=== PATIENT | female | born 1945 | race Caucasian/White ===

== ENCOUNTER 2023-12-15 03:20 | Observation (INO) | payer OTHER, SELFPAY ==
[2023-12-14 23:34] VITALS: BP 119/64
[2023-12-14 23:42] VITALS: BMI 28.0
[2023-12-14 23:46] LABS: Glucose - Point of Care 142 mg/dl (70-99)
[2023-12-14 23:59] LABS: % Basophils 0.3 % (0-2); % Eosinophils 0.4 % (0-6); % Immature Granulocytes 0.5 % (0-0.5); % Lymphocytes 14.8 % (20.5-51.1); % Monocytes 6.3 % (1.7-9.3); % Neutrophils 77.7 % (42.2-75.2); Absolute Eosinophils 0.1 10^3/uL (0-0.7); Absolute Immature Granulocytes 0.1 10^3/uL (0-0.05); Absolute Monocytes 0.8 10^3/uL (0.1-0.6); Absolute Neutrophils 10.3 10^3/uL (1.4-6.5); Hematocrit 34.1 % (37.0-47.0); Hemoglobin 11.5 g/dL (12.0-16.0); Mean Corp Hgb Conc. 33.7 g/dL (33.0-37.0); Mean Platelet Volume 9.1 fL (7.4-10.4); Nucleated Red Blood Cells % 0 %; Platelet Count 293 10^3/uL (130-400); Red Blood Cell Count 4.11 10^6/uL (4.20-5.40); Red Cell Dist. Width 15.7 % (11.5-14.5); White Blood Cell Count 13.3 10^3/uL (4.8-10.8)
[2023-12-15] VITALS (32 sets, daily range): BP systolic 98–128; BP diastolic 52–79; PULSE 62–87; BMI 27.5
[2023-12-15 00:11] LABS: ALT (SGPT) 22 U/L (0-35); AST (SGOT) 29 U/L (14-36); Albumin 4.1 g/dl (3.5-5.0); Alkaline Phosphatase 82 U/L (38-126); Blood Urea Nitrogen 24 mg/dl (7-17); Calcium 9.4 mg/dl (8.4-10.2); Carbon Dioxide 22 mmol/L (22-30); Chloride 105 mmol/L (98-107); Estimated Creatinine Clearance 83 ml/min; Glucose 152 mg/dl (70-99); Lipase 58 U/L (23-300); Potassium 4.2 mmol/L (3.5-5.1); Sodium 135 mmol/L (135-145); Total Bilirubin 0.4 mg/dl (0.2-1.3); Total Protein 6.5 g/dl (6.3-8.2); eGFR > 60.00
[2023-12-15 00:22] LABS: Troponin I < 0.012 ng/ml
--- NOTE | 2023-12-15 00:40 | ED.GENMED ---
History of Present Illness
General
Chief Complaint: Fainting/Passed Out
Source: patient and spouse
Exam Limitations: none
Time Seen by Provider: 12/15/23 00:15
Nursing documentation reviewed up to this point in time: agreed with
Travel History
Have you had any contact with someone who has COVID-19?: No
Do you have any symptoms of coronavirus? Fever > 100 degrees, chills, cough, shortness of breath, sore throat, loss of taste or smell, muscle aches, or headache?: No
History of Present Illness
History of Present Illness:
Patient with history of atrial fibrillation on Eliquis and recent COVID infection 3 weeks ago after cruise trip, presents to ED secondary to syncopal episode at home, shortly prior to arrival. Patient was at her baseline health this morning and
this evening. Patient had just returned from casino and dinner outing. She fell asleep on her reclining chair. Patient was woken up by her , to go to sleep. When she stood up and was walking to restroom to urinate, patient reports 'not
feeling well'. Patient started to feel lightheaded, different from her vertigo episodes in the past, and sweaty. Patient was able to go to restroom, and was sitting on toilet, when her heard noise, as if something had been knocked down.
When he entered the restroom, patient was still sitting on the toilet with her head down. Patient woke up spontaneously, and there was no confusion noted. Patient reports having had similar episode 2 weeks ago which resolved spontaneously.
Patient denies chest palpitations or shortness of breath. Denies headache. Denies loss of sensation or weakness. Denies back pain. Denies leg pain or swelling. Denies history of heart disease or CVA. Denies drinking alcohol.
Past History
Past History
ED Past Medical History: HTN, Hypercholesterolemia and NIDDM; Negative Asthma
ED Past Surgical History: None
Social History
Tobacco: Former smoker
Alcohol: Occasional
Personal:
Living: with family
Review of Systems
Review of Systems
Allergies reviewed?: Yes
All Other Systems: ROS reviewed and negative except as documented in HPI and ROS
Constitutional: Reports no symptoms
EENT: Reports no symptoms
Respiratory: Reports no symptoms
Cardiac: Reports diaphoresis and syncope
ABD/GI: Reports no symptoms
: Reports no symptoms
Musculoskeletal: Reports no symptoms
Skin: Reports no symptoms
Neurological: Reports dizzy
Phy Exam
Physical Exam
Physical Exam:
Physical Exam
General: no apparent distress, not acutely ill
Head: nc/at. eomi
Neck: supple. no meningeal signs.
Heart: s1/s2 regular rate and rhythm, systolic ejection murmur. equal radial pulses.
Lungs: no acute respiratory distress. clear bilaterally
Abdomen: normal bowel sounds. not tender.
Neuro: alert and oriented. no focal neurological deficits. left facial droop, chronic.
Skin: no rash
Psychiatric: well kept. interactive and cooperative
Extremities: no edema. no calf tenderness.
Course
Orders/Labs/Results
Orders:
Orders
12/14/23 23:33
EKG [Electrocardiogram (*1)] Urgent
Reason for Study: Syncope
EKG- Treatment ONCE
12/14/23 23:48
CBC/With Diff [Complete Blood Count/With Diff] Urgent
CMP [Comprehensive Metabolic Panel] Urgent
Lipase Urgent
12/14/23 23:50
Troponin I Urgent
12/15/23 00:40
Orthostatic VS- Treatment ONCE
12/15/23 00:45
CT Head W/o Iv Contrast Urgent
Comment:
Reason For Exam: dizziness with syncope
12/15/23 03:06
Admit/Transfer Patient As Directed
Co-Sign Provider:
Level of Care: Observation services
Assign to:: Telemetry
Physician / Group: [facility]
Diagnosis: Syncope
Reason for Telemetry: Syncope
Date to Stop Telemetry: 12/17/23
Time to Stop Telemetry: 11:00
12/15/23 03:08
Code Status As Directed
Resuscitation Status: Full Code
12/15/23 03:48
0.9% Sodium Chloride 1000 ml [Nss] 1,000 ml IV 100 mls/hr
Acetaminophen [Tylenol] 650 mg PO Q4HPRN PRN
Dextrose 50%-Water [Dextrose 50% Syringe] 12.5 grams IV [id number] PRN
Glucagon [GlucaGen] 1 mg IM PRN PRN
Ondansetron Injectable [Zofran] 4 mg IV Q6HPRN PRN
12/15/23 03:48
Activity As Directed
Activity Level: Ambulate
With Assistance
Bedside Glucose Monitoring As Directed
Frequency: AC&HS
Comment: Change to q6h if pt on TPN, tube feeding or not eating
Bladder Scan As Directed
Follow Bladder Retention/Intermittent Cath Algorithm?: Yes
PRN if no void in __ hours: 6
Frequency: Per Retention Algorithm
If Bladder Scan Result >: 400
then:: Straight cath
EKG with chest pain [ECG as needed] As Directed
ECG as needed for:: Chest Pain
I/O [Intake/ Output] As Directed
Frequency: Per unit guidelines
Orthostatic Vital Signs As Directed
Orthostatic VS Frequency: BID
Pneumatic Compression Sleeves As Directed
Type: Knee high
Straight Cath As Directed
Frequency: Per Retention Algorithm
Additional Instructions: straight cath as needed per acute urinary retention algorithm for 24 hrs
Additional Instructions: for bladder scan greater than 400 mL
Vital Signs As Directed
Frequency: Per unit guidelines
Weight As Directed
Frequency: Daily
Oxygen Therapy [O2 Therapy] [RESP] Routine
Titrate/Wean O2 to maintain O2 sat greater than (%): 94
Ot Eval And Treat Routine
PT Consult [Pt Eval And Treat] Routine
Activity Level: Ambulate
With Assistance
DX Deep Vein Thrombosis Video Routine
12/15/23 05:09
Basic Metabolic Panel IN AM
Complete Blood Count/No Diff IN AM
Glycohemoglobin (HgbA1c) IN AM
TSH Reflex To Free T4 Routine
12/15/23 Breakfast
2000 calorie (17 carb) Diabetic
At Your Request: Full Participation
Does patient need a safe tray?: No
12/15/23 07:00
Levothyroxine [Synthroid] 112 mcg PO DAILY@0700
12/15/23 07:30
Insulin Aspart Corrective Low [Novolog Flexpen-Low Resistance] See Protocol SC AC
12/15/23 08:00
Apixaban [Eliquis] 5 mg PO BID
Atorvastatin [Lipitor] 40 mg PO DAILY
Autologus Serum Eye Drops 1 drop DROP QID
Diltiazem Extended Release [Cardizem Cd] 180 mg PO DAILY
Glipizide Extended Release [Glucotrol Xl (Extended Release)] 10 mg PO BID
Lisinopril [Zestril] 10 mg PO DAILY
Metformin Extended Release [Glucophage Xr Extended Release] 500 mg PO QID
Pancrelipase [Zenpep Delayed Release Capsule] 1 capsule PO QID
12/17/23 11:00
DC Protocol for Telemetry ONCE
Abnormal Lab Results
12/14/23 12/14/23
23:45 23:48
WBC 13.3 H 10^3/uL
(4.8-10.8)
RBC 4.11 L 10^6/uL
(4.20-5.40)
Hgb 11.5 L g/dL
(12.0-16.0)
Hct 34.1 L %
(37.0-47.0)
RDW 15.7 H %
(11.5-14.5)
Abs Immat Gran (auto) 0.1 H 10^3/uL
(0-0.05)
Absolute Neuts (auto) 10.3 H 10^3/uL
(1.4-6.5)
Absolute Monos (auto) 0.8 H 10^3/uL
(0.1-0.6)
Neutrophils % 77.7 H %
(42.2-75.2)
Lymphocytes % 14.8 L %
(20.5-51.1)
BUN 24 H mg/dl
(7-17)
Glucose 152 H mg/dl
(70-99)
POC Glucose 142 H mg/dl
(70-99)
12/14/23 23:48
12/14/23 23:48
Vital Signs
Initial and Last Documented VS:
Initial Vital Signs
Temp Pulse Resp BP Pulse Ox
97.8 F 67 16 119/64 96
12/14/23 23:34 12/14/23 23:34 12/14/23 23:34 12/14/23 23:34 12/14/23 23:34
Last Documented Vital Signs
Temp Pulse Resp BP Pulse Ox
98.3 F 60 18 115/67 95
12/15/23 07:48 12/15/23 08:25 12/15/23 07:48 12/15/23 08:25 12/15/23 07:48
MDM/Problems Addressed
MDM/Problems Addressed:
Patient with recurrent syncopal episodes over the past 2 weeks. Unclear etiology at this time, but does appear to be positional along with component of vagal response. In addition, the patient reports dizziness when changing position, but history
does not correlate with any degree of dehydration. Cardiogenic versus neurogenic syncope, and will need further evaluation
*EKG
Interpreted by ED Provider?: Yes
EKG Intrepretation Date: 12/15/23
Heart Rate: 61
Rate: normal
Rhythm: sinus
[place]: normal axis
Interval: normal interval
*Critical Care Note
Total Time (30-74mins, 75-104mins- exclusive of procedures): Not Applicable
ED Attending Note
-
Portions of this chart may have been created with voice recognition software.� Occasional wrong word or��sound alike� substitutions may have occurred due to the inherent limitations of voice recognition software.
Discharge Plan
Departure
Patient Disposition: Admit
Date of Disposition: 12/15/23
Time of Disposition: 02:17
Admit to: Telemetry
Presentation/result/management discussed w/ accepting MD/DO: Hospitalist
Condition: Fair
Discharge Problem:
Syncope
Interventions
Interventions:
*Risk Screen - Suicide Last Done: 12/14/23 23:34
*General Assessment Last Done: 12/14/23 23:34
*Neglect/Abuse Screening Last Done: 12/14/23 23:34
ED- Fall Risk Assessment Last Done: 12/14/23 23:57
*ED COVID-19 Vaccine History Last Done: 12/14/23 23:42
*Nursing Disposition Last Done: 12/15/23 04:20
ED- Cardiac Assessment Last Done: 12/14/23 23:57
ED- Neurological Assessment Last Done: 12/14/23 23:57
--- NOTE | 2023-12-15 03:10 | HPS.HSE ---
Family Physician
-
Family Physician: Carlos Mcarthur
Chief Complaint
-
Syncope
History of Present Illness
Patient is a 78y F with PMH significant for HTN, DM-II and pancreatic insufficiency s/p Whipple who presents to ED complaining of syncopal episode. History obtained from patient and her at the beside. Patient states that she fell asleep
this evening in her recliner around 8:30 PM - which is typical for her. Her woke her around 10:30 PM to go to bed - which is also typical. Patient states that she was walking to the bedroom when she began to feel lightheaded, sweaty and
nauseated. She went into the bathroom and sat on the toilet. Her brought her a cup of water. Patient then briefly lost consciousness and dropped the cup. She did not fall from the toilet and suffered no injury. lifted her head
and she began to come around. She had N/V x 1 episode after regaining consciousness.
Patient states that she had been feeling well earlier in the evening and denies any recent illness / symptoms.
Patient reports that she had a similar episode about 2 weeks ago. It was identical in terms of being woken from sleep to ambulate to bed and briefly losing consciousness. She did not have N/V on that occasion and she did not seek medical attention
at that time.
Patient reports that she was started on Jardiance at the end of October - about one week prior to her initial episode of syncope.
She also notes that she had COVID about 3 weeks ago - now fully recovered.
Medical History
Past Medical History
Past Medical History: Reports Other
Additional Past Medical History:
Pancreatic Lesion
Exocrine Pancreatic Insufficiency
Hypertension
Paroxysmal Atrial Fibrillation
Brain Tumor
Hypothyroidism
DM-II
Hypertension
Past Surgical History: Reports Other
Additional Past Surgical History:
Craniotomy / Tumor Excision - R Occipital
Implanted Hearing Aid - R Mastoid
Whipple
Incisional Herniorrhaphy
Carpal Tunnel
Cataracts
Left Hand Surgery
Facial Reconstruction Surgeries
Social History
Tobacco: Former Smoker
Alcohol: Occasional
Drug: None
Personal:
Living: With Family
Family History
Family History: Not pertinent
Allergies / Home Medications
Allergies reflects when Allergies were last updated in [facility].
Home Medications with original date entered in [facility]
Allergy/Medication List:
Allergies
Allergy/AdvReac Type Severity Reaction Status Date / Time
Sulfa (Sulfonamide Allergy LOC Verified 12/14/23 23:33
Antibiotics)
[Sulfa(Sulfonamide
Antibiotics)]
Home Medications
atorvastatin 40 mg tablet 40 mg PO DAILY High cholesterol 07/13/21
erythromycin 5 mg/gram (0.5 %) eye ointment 1 applic RIGHT EYE HS Eye condition 07/13/21
glipizide 2.5 mg tablet, extended release 24 hr 10 mg PO BID Diabetes 07/13/21
levothyroxine 88 mcg tablet 112 mcg PO DAILY Thyroid 07/13/21
metformin 500 mg tablet,extended release 24 hr 500 mg PO QID Diabetes 07/13/21
quinapril 10 mg tablet (Accupril) 10 mg PO DAILY Blood pressure 07/13/21
apixaban 5 mg tablet (Eliquis) 5 mg PO BID #60 tabs 07/20/21
Autologus Serum Eye Drops 1 DROP QID 08/30/21
Tumeric 500 mg PO DAILY 08/30/21
Zinc, Magnesium, Calcium mg PO DAILY 08/30/21
calcium carbonate 600 mg calcium (1,500 mg) tablet 600 mg PO DAILY 08/30/21
cholecalciferol (vitamin D3) 25 mcg (1,000 unit) capsule (Vitamin D3) 25 mcg PO DAILY 08/30/21
diltiazem HCl 240 mg capsule,extended release 24 hr 180 mg PO DAILY 12/15/23
empagliflozin 10 mg tablet (Jardiance) 10 mg PO DAILY 12/15/23
[id number]-mdxvndnu-ctletbe 24,000-76,000-120,000 unit capsule,delayed rel (Creon) 1 cap PO QID 12/15/23
Review of Systems
-
History Source: Patient
A 12 point ROS was completed and negative except as noted: Yes
Constitutional: Reports Fatigue; Denies Fever or Chills
EENT: Denies Sore Throat
Respiratory: Denies Cough or Trouble Breathing
Cardiac: Reports Diaphoresis and Syncope; Denies Chest Pain or Palpitations
Abdomen/GI: Reports Nausea and Vomiting; Denies Abdominal Pain or Diarrhea
: Denies Dysuria, Frequency or Flank Pain
Musculoskeletal: Denies Joint Pain or Edema
Neurological: Reports Dizzy; Denies Headache
Psych: Denies Depression or Anxiety
Physical Exam
Vital Signs
Vital Signs
Temp Pulse Resp BP Pulse Ox
97.8 F 76 16 125/63 93
12/14/23 23:34 12/15/23 02:30 12/15/23 02:30 12/15/23 02:10 12/15/23 02:30
Physical Exam
General: Other (78y F in no acute distress.)
HEENT: Moist mucous membranes
Respiratory: Clear; No Wheezes, Rales or Rhonchi
Cardiac: S1/S2 and Regular Rhythm; No Murmur
GI: Soft, Non Tender, Non Distended and Normal Bowel Sounds
Musculoskeletal: No Clubbing, No Cyanosis and No Edema
Neuro: AO x 3 and Other (R facial paralysis / droop - chronic and unchanged.)
Laboratory Results
-
12/14/23 23:48
12/14/23 23:48
Laboratory Results
Total Bilirubin 0.4 mg/dl (0.2-1.3) 12/14/23 23:48
AST 29 U/L (14-36) 12/14/23 23:48
ALT 22 U/L (0-35) 12/14/23 23:48
Alkaline Phosphatase 82 U/L (38-126) 12/14/23 23:48
Troponin I < 0.012 ng/ml 12/14/23 23:50
Lipase 58 U/L (23-300) 12/14/23 23:48
Impression/Plan
-
A/P: Patient is a 78y F with PMH significant for brain tumor s/p excision, pancreatic lesion s/p Whipple, DM-II and pancreatic insufficiency who presents to ED s/p syncopal episode.
Syncope
- Observe overnight for further evaluation and treatment.
- Seems likely orthostatic / vasovagal episode based on description.
- Suspect combination of being woken from sleep and recent introduction of diuretic therapy as contributing factors.
- Monitor on tele overnight to rule out arrhythmia.
- Follow orthostatic signs.
- IVFs overnight.
- PT / OT evaluations in the AM.
- Would consider altering usual habit of falling asleep and then being woken 'in the middle of the night' to ambulate to the bedroom.
DM-II
- Stable. On multidrug regimen and most recent change was from Januvia to Jardiance.
- Suspect diuretic effect contributed to current presentation given 2 episodes since this med was initiated.
- Will hold SGLT2 for now.
- Patient will follow-up with Endocrine as an outpatient.
- Could repeat trial with increased fluid intake (though patient states that she has been drinking lots of fluids).
- Continue other DM medications plus SSI as needed.
- Update A1C.
Benign Hypertension
- Stable. Continue BP medications with holding parameters.
Paroxysmal Atrial Fibrillation
- Single episode of A-Fib in the past. Currently in NSR.
- Monitor on tele as noted above.
- Continue Eliquis for stroke risk reduction.
Pancreatic Insufficiency
- Stable. Continue Creon with meals.
Hypothyroidism
- Continue current T4 replacement.
- Update TFTs.
History of Brain Tumor
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
- No new findings.
DVT Prophylaxis: On Eliquis
Code Status: Full
[2023-12-15] MEDS: NSS 1000 IV (05:18)
[2023-12-15 05:29] LABS: Hematocrit 31.9 % (37.0-47.0); Hemoglobin 10.9 g/dL (12.0-16.0); Mean Corp Hgb Conc. 34.2 g/dL (33.0-37.0); Mean Corpuscular Hgb 28.5 pg (27.0-31.0); Mean Corpuscular Volume 83.5 fL (81.0-99.0); Mean Platelet Volume 9.4 fL (7.4-10.4); Platelet Count 291 10^3/uL (130-400); Red Blood Cell Count 3.82 10^6/uL (4.20-5.40); Red Cell Dist. Width 15.7 % (11.5-14.5); White Blood Cell Count 9.4 10^3/uL (4.8-10.8)
[2023-12-15 05:50] LABS: Blood Urea Nitrogen 22 mg/dl (7-17); Calcium 8.9 mg/dl (8.4-10.2); Carbon Dioxide 23 mmol/L (22-30); Chloride 104 mmol/L (98-107); Estimated Creatinine Clearance 83 ml/min; Glucose 273 mg/dl (70-99); Potassium 4.6 mmol/L (3.5-5.1); Sodium 133 mmol/L (135-145); eGFR > 60.00
[2023-12-15 06:20] LABS: TSH Reflex To Free T4 1.23 uIU/ml (0.47-4.68)
[2023-12-15] MEDS: ZENPEP DELAYED RELEASE CAPSULE 1 CAPSULE PO ×4 (08:04→21:31)
[2023-12-15] MEDS: GLUCOPHAGE XR EXTENDED RELEASE 500 MG PO (08:04)
[2023-12-15] MEDS: SYNTHROID 112 MCG PO (08:14)
[2023-12-15] MEDS: ZESTRIL 10 MG PO (08:14)
[2023-12-15] MEDS: GLUCOTROL XL (EXTENDED RELEASE) 10 MG PO ×2 (08:14→22:16)
[2023-12-15] MEDS: ELIQUIS 5 MG PO ×2 (08:14→21:31)
[2023-12-15] MEDS: LIPITOR 40 MG PO (08:15)
[2023-12-15 08:20] LABS: Glucose - Point of Care 200 mg/dl (70-99)
[2023-12-15 08:24] LABS: Glycohemoglobin (HgbA1c) 8.6 % (4.0-5.6)
[2023-12-15] MEDS: CARDIZEM CD 180 MG PO (08:25)
[2023-12-15] MEDS: NOVOLOG FLEXPEN-LOW RESISTANCE 2 UNITS SC (09:25)
[2023-12-15 13:19] LABS: Glucose - Point of Care 97 mg/dl (70-99)
[2023-12-15] MEDS: NOVOLOG FLEXPEN-LOW RESISTANCE SC ×2 (13:25→17:29)
--- NOTE | 2023-12-15 16:34 | W.PN.HOSP.TC ---
Today's Communication/Plan
-
ambulate over next 24 hrs with potential dc if remains asymptomatic, off Jardiance and obtain OLIVIER's to wear when OOB
Assessment / Plan
Assessment / Plan
Syncope
�- Observe for 1 more day for further evaluation and treatment.
�- Seems likely orthostatic / vasovagal episode based on description.
� listed side effect to Jardiance. Would not resume
�- Monitor on tele overnight to rule out arrhythmia.
�- Follow orthostatic signs.
�- stop IVFs
�- PT / OT evaluations appreciated
�- Discussed use of OLIVIER's and avoidance of falling asleep on the recliner and then getting up to go to the bathroom prior to going to bed. Started on Jardiance 3 wks ago, initial episode was 2 wks ago and then last night
DM-II
�- Stable.� On multidrug regimen and most recent change was from Januvia to Jardiance.
�- Suspect diuretic effect contributed to current presentation given 2 episodes since this med was initiated.
�- Will hold SGLT2 for now.
�- Patient will follow-up with Endocrine as an outpatient.
�- Could repeat trial with increased fluid intake (though patient states that she has been drinking lots of fluids).
�- Continue other DM medications plus SSI as needed.
�- 8.6% A1C.
Benign Hypertension
�- Stable.� Continue BP medications with holding parameters.
Paroxysmal Atrial Fibrillation
�- Single episode of A-Fib in the past.� Currently in NSR.
�- Monitor on tele as noted above.
�- Continue Eliquis for stroke risk reduction. Continue Diltiazem for rhythm control
Pancreatic Insufficiency
�- Stable.� Continue Creon with meals.
Hypothyroidism
�- Continue current T4 replacement.
�- TSH 1.23
History of Brain Tumor
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
�- No new findings.
DVT Prophylaxis:� On Eliquis
Code Status:� Full
Anticipated Discharge: Within 24 hours
Subjective/Interval History
-
Date of Service: December 15, 2023
No further dizziness, but has not been out of bed much
Objective Data
-
Labs:
Laboratory Results
12/15/23
05:09
WBC 9.4
Hgb 10.9 L
Hct 31.9 L
Plt Count 291
Sodium 133 L
Potassium 4.6
Chloride 104
Carbon Dioxide 23
BUN 22 H
Creatinine 0.5 L
Glucose 273 H
Calcium 8.9
Vital Signs:
Vital Signs
Temp Pulse Resp BP Pulse Ox
98.3 F 64 15 104/61 95
12/15/23 07:48 12/15/23 16:00 12/15/23 16:00 12/15/23 16:00 12/15/23 09:15
Review of Systems
-
History Source: Patient and Coordinated Provider
Constitutional: Denies Fever
EENT: Reports No Symptoms Reported
Respiratory: Reports No Symptoms
Cardiac: Reports No Symptoms
Abdomen/GI: Reports No Symptoms
Physical Exam
-
General: Well Developed, Well Nourished and No Apparent Distress
HEENT: Normocephalic, Atraumatic and Moist Mucous Membranes
Respiratory: Clear to Auscultation; Negative Wheezes, Rales or Rhonchi
Cardiac: Regular Rhythm and S1/S2
GI: Soft and Nontender
Musculoskeletal: No Cyanosis and No Edema
Neuro: Awake, Alert, Oriented and Facial Droop (rt sided - chronic)
[2023-12-15] MEDS: NSS IV (16:47)
[2023-12-15 17:20] LABS: Glucose - Point of Care 148 mg/dl (70-99)
[2023-12-15] MEDS: GLUCOPHAGE XR EXTENDED RELEASE 1000 MG PO (17:29)
[2023-12-15 21:20] LABS: Glucose - Point of Care 142 mg/dl (70-99)
[2023-12-15] MEDS: ERYTHROMYCIN 0.5% OPHTHALMIC OINTMENT 1 APPLIC RIGHT EYE (21:31)
[2023-12-15] MEDS: GLUCOTROL XL (EXTENDED RELEASE) PO (21:37)
--- NOTE | 2023-12-16 01:39 | PTCARENOTE ---
Pt did well ambulating from bed to bathroom. No reports of dizziness, SOB, etc.
[2023-12-16 03:00] VITALS: BP 104/49
[2023-12-16 06:00] VITALS: BMI 27.1
[2023-12-16] MEDS: SYNTHROID 112 MCG PO (06:17)
[2023-12-16 07:27] LABS: Glucose - Point of Care 130 mg/dl (70-99)
[2023-12-16 07:55] VITALS: BP 110/63; BP 111/64; BP 112/62; PULSE 63; PULSE 64; PULSE 74
[2023-12-16] MEDS: NOVOLOG FLEXPEN-LOW RESISTANCE SC (08:39)
[2023-12-16] MEDS: ZENPEP DELAYED RELEASE CAPSULE 1 CAPSULE PO ×2 (08:45→11:46)
[2023-12-16] MEDS: ELIQUIS 5 MG PO (08:45)
[2023-12-16] MEDS: GLUCOTROL XL (EXTENDED RELEASE) 10 MG PO (08:45)
[2023-12-16] MEDS: LIPITOR 40 MG PO (08:45)
[2023-12-16] MEDS: CARDIZEM CD 180 MG PO (08:45)
[2023-12-16] MEDS: GLUCOPHAGE XR EXTENDED RELEASE 1000 MG PO (08:45)
[2023-12-16] MEDS: ZESTRIL 10 MG PO (08:45)
--- NOTE | 2023-12-16 11:13 | W.PN.HOSP.TC ---
Today's Communication/Plan
-
dc to home
Assessment / Plan
Assessment / Plan
Assessment:
Syncope
- suspect vagal vs orthostasis in setting of Jardiance (listed in side effect profile)
- timeline of symptoms mirrors initiation of Jardiance 3 weeks ago
- orthostatics normal this AM
- TEDS for home
- no events on tele
- PT/OT - ok for home
Type 2 DM
- recent change from Januvia to Jardiance
- now off Jardiance
- continue MFM/Glipizide
- follow up with Endo (Dr. Olmos)
- 8.6% A1C.
Benign Hypertension
- Stable.� Continue BP medications with holding parameters.
Paroxysmal Atrial Fibrillation
- Single episode of A-Fib in the past.� Currently in NSR.
- Monitor on tele as noted above.
- Continue Eliquis for stroke risk reduction. Continue Diltiazem for rhythm control
Pancreatic Insufficiency
- Stable.� Continue Creon with meals.
Hypothyroidism
- Continue current T4 replacement.
- TSH 1.23
History of Brain Tumor
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
- No new findings.
DVT Prophylaxis:� On Eliquis
Code Status:� Full
More than 30 minutes spent in discharge including
Final examination of the patient
Summarizing hospital stay
Instructions for continuing care to all relevant caregivers
Preparation of discharge records, prescriptions, and referral forms
Total time spent (in minutes): 41
Anticipated Discharge: Today
Subjective/Interval History
-
Date of Service: December 16, 2023
feels well no complaint currently
Objective Data
-
Vital Signs:
Vital Signs
Temp Pulse Resp BP Pulse Ox
98.3 F 63 16 110/63 95
12/16/23 07:55 12/16/23 07:55 12/16/23 07:55 12/16/23 07:55 12/16/23 07:55
I&O
12/15/23 12/16/23 12/17/23
06:59 06:59 06:59
Intake Total 720 / 720
Balance 720 / 720
Physical Exam
-
General: No Apparent Distress
HEENT: Normocephalic and Atraumatic
Respiratory: Negative Wheezes or Rales
Cardiac: Regular Rhythm and S1/S2
GI: Soft
Genito-urinary: No Costovertebral Tender
Neuro: AO x 3
Hematologic / Lymphatic: No Lymphadenopathy
Psych: Calm
Data Reviewed
-
Total Time Spent with Patient (in minutes): 45
Labs: Labs Reviewed by me
--- NOTE | 2023-12-16 11:19 | W.DS.TRANS ---
DC Summary - Managed Care Nurse
-
Discharge Instructions:
Sleep Apnea Risk Intermediate
Discharge Diagnosis/Procedures orthostasis/vasovagal syncope from Jardiance
Diet Diabetic, Carb Controlled
Activity As tolerated
Bathing Restrictions None
Stop these medications: Jardiance
Instructions:
Stand-Alone Forms:
Changes to Home Medications: Yes
Discharge Medications:
DC Medications w/original date entered in [facility]
atorvastatin 40 mg tablet 40 mg PO DAILY High cholesterol 07/13/21
erythromycin 5 mg/gram (0.5 %) eye ointment 1 applic RIGHT EYE HS Eye condition 07/13/21
levothyroxine 88 mcg tablet 112 mcg PO DAILY Thyroid 07/13/21
metformin 500 mg tablet,extended release 24 hr 1,000 mg PO BID@0800,1700 Diabetes 07/13/21
apixaban 5 mg tablet (Eliquis) 5 mg PO BID #60 tabs 07/20/21
Autologus Serum Eye Drops 1 drp BOTH EYES TID dry eyes 08/30/21
Tumeric 500 mg PO DAILY supplement 08/30/21
Zinc, Magnesium, Calcium 1 tab PO DAILY supplement 08/30/21
cholecalciferol (vitamin D3) 25 mcg (1,000 unit) capsule (Vitamin D3) 25 mcg PO DAILY supplement 08/30/21
calcium carbonate-vitamin D3 1 tab PO DAILY supplement 12/15/23
diltiazem HCl 180 mg capsule,24 hr,extended release 180 mg PO DAILY Heart Disease/Condition 12/15/23
glipizide 10 mg tablet, extended release 24 hr 10 mg PO BID@0800,1700 diabetes 12/15/23
iiormk-oduaiibb-poarljo 24,000-76,000-120,000 unit capsule,delayed rel (Creon) 1 cap PO MEALS pancreatic insufficiency 12/15/23
lisinopril 10 mg tablet 10 mg PO DAILY blood pressure 12/15/23
Home Medication Changes
Jardiance stopped
Pending Results: No
Total time spent discharging patient (in min): 41
[2023-12-16 11:26] LABS: Glucose - Point of Care 159 mg/dl (70-99)
[2023-12-16 11:35] VITALS: BP 126/71
--- NOTE | 2023-12-16 11:49 | CM ---
[employer] letter provided to patient, explained and signed. manager talent reviewed patient's chart and met with patient and patient lives with spouse in a one story home, patient is independent with adl's and ambulation, patient has no dme, home today no
needs.
Pharmacy: [facility]
PCP: Dr. Mcarthur
Plan; Home today no needs.
[2023-12-16] MEDS: NOVOLOG FLEXPEN-LOW RESISTANCE 1 UNITS SC (12:14)
== END 2023-12-16 13:50 | disposition home or self-care (01) ==
LOC: 4 WEST ACU 03:20
PROVIDERS: Emergency Medicine; ADMITTING PHYSICIAN Hospitalist; ATTENDING PHYSICIAN Internal Medicine; EMERGENCY PHYSICIAN Emergency Medicine; FAMILY PHYSICIAN Family Medicine
DX: R55 Syncope and collapse (principal); R11.2 Nausea with vomiting, unspecified; E11.9 Type 2 diabetes mellitus without complications; I10 Essential (primary) hypertension; E78.00 Pure hypercholesterolemia, unspecified; I48.0 Paroxysmal atrial fibrillation; R42 Dizziness and giddiness; E03.9 Hypothyroidism, unspecified; G93.89 Other specified disorders of brain; K86.81 Exocrine pancreatic insufficiency; R33.9 Retention of urine, unspecified; Z79.01 Long term (current) use of anticoagulants; Z86.16 Personal history of COVID-19; Z87.891 Personal history of nicotine dependence; Z88.2 Allergy status to sulfonamides; Z79.84 Long term (current) use of oral hypoglycemic drugs
CPT/HCPCS: 70450; 80048; 80053; 82962; 83036; 83690; 84443; 84484; 85025; 85027; 93005; 97162; 97166; 99285; G0378

== ENCOUNTER 2024-01-03 11:57 | Emergency (ER) | payer OTHER, SELFPAY ==
[2024-01-03 12:11] VITALS: BP 145/83
--- NOTE | 2024-01-03 12:54 | ED.GENMED ---
History of Present Illness
General
Chief Complaint: Heart Rate Problem
Time Seen by Provider: 01/03/24 12:53
Travel History
Have you had any contact with someone who has COVID-19?: No
Do you have any symptoms of coronavirus? Fever > 100 degrees, chills, cough, shortness of breath, sore throat, loss of taste or smell, muscle aches, or headache?: No
History of Present Illness
History of Present Illness:
HPI: Patient presents with sensation of heart racing lasted about an hour that started about 2 hours ago. Currently she feels improved. She states that her Apple Watch did not indicate that she was in A-fib. She senses her heart rate was very
fast earlier.
EXAM:
GENERAL: Well appearing in no distress
HEENT: Moist oral mucosa
CARDIOVASCULAR: No murmurs, normal heart rate, regular rhythm, No chest wall tenderness
PULMONARY: No respiratory distress, breath sounds are clear and equal
ABDOMEN: Soft with no peritoneal signs, no tenderness
NEUROLOGIC: Excellent strength all extremities, no coordination deficits chronic facial asymmetry noted
PSYCHIATRIC: Appropriate mental status, normal insight and judgement
EXTREMITIES: Nontender, trace bilateral lower extremity edema, moves all extremities equally
SKIN: No rash, no lesions
TIME OF INITIAL ENCOUNTER: 1:10 PM
NUMBER AND COMPLEXITY OF PROBLEMS ADDRESSED AT THE ENCOUNTER
� Chronic conditions affecting care: Paroxysmal A-fib on Eliquis and diltiazem, hypothyroidism on replacement
� Acute Exacerbation and/or Progression of Chronic Illness: This is an acute problem
� Differential Diagnosis includes: Proximal atrial fibrillation, electrolyte abnormality, anemia
AMOUNT AND/OR COMPLEXITY OF DATA TO BE REVIEWED AND ANALYZED
� I performed an independent evaluation of and my interpretation is:
EKG: Sinus 78, normal axis, nonspecific ST abnormality, no significant change from 12/14/2023
CT:
X-rays:
Laboratory Studies: CBC, chemistries unremarkable however glucose is elevated at 215�she is a diabetic, TSH normal
Other:
� Review of other/old records: The patient was admitted here briefly 3 weeks ago, at that time she came in with a syncopal event
� Clinical information was obtained by an independent historian: Spoke to at bedside
� Prescriptions/Medications Considered but not given:
� Further testing considered but not performed:
RISK OF COMPLICATIONS AND/OR MORBIDITY OR MORTALITY OF PATIENT MANAGEMENT
� Social determinants of health affecting care: Lives at home
� Discussion with other providers:
� Escalation of care including admission/observation vs risk of discharge considered: I reviewed the discharge summary from last admit 3 weeks ago. The patient arrives with a normal rate and rhythm. Currently, the patient feels
spontaneously improved and feels she is wasting our time. She has no symptoms. She has remained in a sinus rhythm throughout her stay including at discharge at 2:30 PM. I suggested that she follows up with her pneudraulic systems mechanic.
Past History
Past History
ED Past Medical History: HTN, Hypercholesterolemia and NIDDM; Negative Asthma
ED Past Surgical History: None
Social History
Tobacco: Former smoker
Alcohol: Occasional
Personal:
Living: with family
Phy Exam
Physical Exam
Physical Exam:
See HPI
Course
Orders/Labs/Results
Orders:
Orders
01/03/24 12:14
EKG [Electrocardiogram (*1)] Urgent
Reason for Study: Palpitations
EKG- Treatment ONCE
01/03/24 13:04
Basic Metabolic Panel Urgent
Complete Blood Count/With Diff Urgent
TSH Reflex To Free T4 Urgent
Abnormal Lab Results
01/03/24
13:04
Hct 36.6 L %
(37.0-47.0)
RDW 15.8 H %
(11.5-14.5)
Abs Immat Gran (auto) 0.1 H 10^3/uL
(0-0.05)
Absolute Neuts (auto) 7.7 H 10^3/uL
(1.4-6.5)
Absolute Monos (auto) 0.7 H 10^3/uL
(0.1-0.6)
Neutrophils % 79.1 H %
(42.2-75.2)
Lymphocytes % 12.9 L %
(20.5-51.1)
Chloride 97 L mmol/L
(98-107)
BUN 23 H mg/dl
(7-17)
Creatinine 0.5 L mg/dL
(0.6-1.0)
Glucose 215 H mg/dl
(70-99)
01/03/24 13:04
01/03/24 13:04
Vital Signs
Initial and Last Documented VS:
Initial Vital Signs
Temp Pulse Resp BP Pulse Ox
98.3 F 82 16 145/83 99
01/03/24 12:11 01/03/24 12:11 01/03/24 12:11 01/03/24 12:11 01/03/24 12:11
Last Documented Vital Signs
Temp Pulse Resp BP Pulse Ox
98.3 F 67 21 124/70 95
01/03/24 12:11 01/03/24 14:15 01/03/24 14:15 01/03/24 14:00 01/03/24 14:15
*Critical Care Note
Total Time (30-74mins, 75-104mins- exclusive of procedures): Not Applicable
ED Attending Note
-
Portions of this chart may have been created with voice recognition software.� Occasional wrong word or��sound alike� substitutions may have occurred due to the inherent limitations of voice recognition software.
Discharge Plan
Departure
Patient Disposition: Home (Routine Discharge)
Date of Disposition: 01/03/24
Time of Disposition: 14:27
Patient with high blood pressure during this ER visit?: Yes
Discharge Problem:
Palpitations
Instructions: Palpitations (DC)
Prescriptions:
No Action
atorvastatin 40 MG tablet
40 mg PO DAILY
levothyroxine 88 MCG tablet
112 mcg PO DAILY
Patient Comments:
patient takes two on Sundays
metformin 500 MG tablet extended release 24 hr
1,000 mg PO BID@0800,1700
erythromycin 1 APPLIC ointment
1 applic RIGHT EYE HS
Eliquis 5 MG tablet
5 mg PO BID Qty: 60 0RF
Autologus Serum Eye Drops
1 drp BOTH EYES TID
Patient Comments:
50 % both eyes QID
cholecalciferol (vitamin D3) [Vitamin D3] 25 MCG capsule
25 mcg PO DAILY
Tumeric Capsule
500 mg PO DAILY
Zinc, Magnesium, Calcium
1 tab PO DAILY
Patient Comments:
Zinc 15 mg, Magnesium 400 mg, Calcium 1,000 mg
Creon 24,000-76,000 -120,000 unit Capsule,Delayed Release(Dr/Ec)
1 cap PO MEALS
Rx Instructions:
Take prior to meals,
24,000 units per dose
diltiazem HCl 180 mg Capsule,Extended Release 24 Hr
180 mg PO DAILY
lisinopril 10 mg tablet
10 mg PO DAILY
calcium carbonate-vitamin D3
1 tab PO DAILY
glipizide 10 mg Tablet Extended Release 24hr
10 mg PO BID@0800,1700
Referrals:
Carlos Mcarthur MD [Family Provider] -
Christopher Irvin MD [Active] - Follow up in 2-3 days
Activity Restrictions/Additional Instructions:
Your basic blood work is normal including thyroid test. I recommend that you follow-up with your pneudraulic systems mechanic. Return here if worse. Your EKG and monitoring shows that you are in a normal sinus rhythm. You are not in atrial fibrillation.
Interventions
Interventions:
*Risk Screen - Suicide Last Done: 01/03/24 12:11
*General Assessment Last Done: 01/03/24 12:11
*Neglect/Abuse Screening Last Done: 01/03/24 12:11
ED- Fall Risk Assessment Last Done: 01/03/24 13:00
ED- Cardiac Assessment Last Done: 01/03/24 13:00
ED- Pulmonary Assessment Last Done: 01/03/24 13:00
[2024-01-03 13:15] LABS: % Basophils 0.6 % (0-2); % Eosinophils 0.1 % (0-6); % Immature Granulocytes 0.5 % (0-0.5); % Lymphocytes 12.9 % (20.5-51.1); % Monocytes 6.8 % (1.7-9.3); % Neutrophils 79.1 % (42.2-75.2); Absolute Basophils 0.1 10^3/uL (0-0.2); Absolute Immature Granulocytes 0.1 10^3/uL (0-0.05); Absolute Lymphocytes 1.3 10^3/uL (1.2-3.4); Absolute Monocytes 0.7 10^3/uL (0.1-0.6); Absolute Neutrophils 7.7 10^3/uL (1.4-6.5); Hematocrit 36.6 % (37.0-47.0); Hemoglobin 12.2 g/dL (12.0-16.0); Mean Corp Hgb Conc. 33.3 g/dL (33.0-37.0); Mean Corpuscular Hgb 27.7 pg (27.0-31.0); Mean Corpuscular Volume 83.2 fL (81.0-99.0); Mean Platelet Volume 8.7 fL (7.4-10.4); Nucleated Red Blood Cells % 0 %; Platelet Count 337 10^3/uL (130-400); Red Cell Dist. Width 15.8 % (11.5-14.5); White Blood Cell Count 9.8 10^3/uL (4.8-10.8)
[2024-01-03 13:35] LABS: Blood Urea Nitrogen 23 mg/dl (7-17); Calcium 9.9 mg/dl (8.4-10.2); Carbon Dioxide 25 mmol/L (22-30); Chloride 97 mmol/L (98-107); Glucose 215 mg/dl (70-99); Potassium 4.1 mmol/L (3.5-5.1); Sodium 135 mmol/L (135-145); eGFR > 60.00
[2024-01-03 13:41] VITALS: BP 124/67
[2024-01-03 14:00] VITALS: BP 124/70
[2024-01-03 14:14] LABS: TSH Reflex To Free T4 1.99 uIU/ml (0.47-4.68)
== END 2024-01-03 15:15 | disposition home or self-care (01) ==
LOC: EMR 11:57
PROVIDERS: EMERGENCY PHYSICIAN Emergency Medicine; FAMILY PHYSICIAN Family Medicine
DX: R00.2 Palpitations (principal); R60.0 Localized edema; I10 Essential (primary) hypertension; E78.00 Pure hypercholesterolemia, unspecified; E11.9 Type 2 diabetes mellitus without complications; Z88.2 Allergy status to sulfonamides; Z79.01 Long term (current) use of anticoagulants; Z79.84 Long term (current) use of oral hypoglycemic drugs
CPT/HCPCS: 99283; 80048; 84443; 85025; 93005

== ENCOUNTER → 2024-01-08 10:16 | Outpatient (REF) | payer OTHER, SELFPAY | LOC: DHCBC HW 10:16 | PROVIDERS: ATTENDING PHYSICIAN Nurse Practitioner; FAMILY PHYSICIAN Family Medicine | DX: I48.0 Paroxysmal atrial fibrillation (principal); R55 Syncope and collapse; E78.00 Pure hypercholesterolemia, unspecified | CPT/HCPCS: 93306 ==

== ENCOUNTER → 2024-06-17 09:32 | Outpatient (REF) | payer OTHER, SELFPAY | LOC: HWWDC 09:32 | PROVIDERS: ATTENDING PHYSICIAN Obstetrics & Gynecology Gynecology; FAMILY PHYSICIAN Family Medicine | DX: Z12.31 Encounter for screening mammogram for malignant neoplasm of breast (principal) | CPT/HCPCS: 77063; 77067 ==

== ENCOUNTER → 2025-02-27 09:10 | Outpatient (REF) | payer OTHER, SELFPAY | LOC: HWRCS 09:10 | PROVIDERS: ATTENDING PHYSICIAN Internal Medicine Cardiovascular Disease; FAMILY PHYSICIAN Family Medicine | DX: I48.0 Paroxysmal atrial fibrillation (principal); R55 Syncope and collapse; E78.00 Pure hypercholesterolemia, unspecified | CPT/HCPCS: 93306 ==

== ENCOUNTER → 2025-08-22 08:35 | Outpatient (REF) | payer OTHER, SELFPAY | LOC: HWWDC 08:35 | PROVIDERS: ATTENDING PHYSICIAN Obstetrics & Gynecology Gynecology; FAMILY PHYSICIAN Family Medicine | DX: Z13.820 Encounter for screening for osteoporosis (principal); Z12.31 Encounter for screening mammogram for malignant neoplasm of breast; M85.89 Other specified disorders of bone density and structure, multiple sites | CPT/HCPCS: 77063; 77067; 77080 ==